=== PATIENT | female | born 1960 | race Caucasian/White ===

== ENCOUNTER → 2024-02-10 15:35 | Outpatient (REF) | payer OTHER, SELFPAY | LOC: RAD 15:35 | PROVIDERS: ATTENDING PHYSICIAN Physician Assistant Medical | DX: S93.602A Unspecified sprain of left foot, initial encounter (principal) | CPT/HCPCS: 73630 ==

== ENCOUNTER → 2024-07-10 10:36 | Outpatient (REF) | payer OTHER, SELFPAY | LOC: WDC 10:36 | PROVIDERS: ATTENDING PHYSICIAN Physician Assistant Medical | DX: Z12.31 Encounter for screening mammogram for malignant neoplasm of breast (principal) | CPT/HCPCS: 77063; 77067 ==